=== PATIENT | female | born 1975 | race Caucasian/White ===

== ENCOUNTER 2023-11-05 06:22 | Day surgery (SDC) | payer OTHER ==
[~2023-11-05 06:22] MED LIST: TOPROL XL50 M1 PO
[2023-11-05] MEDS ORDERED: EPINEPHRINE HCL/PF 1 MG/ML AMPUL ONE (10:45)
[2023-11-05] MEDS ORDERED: GENTAMICIN SULFATE 40 MG/ML VIAL ONE (10:45)
[2023-11-05] MEDS ORDERED: POVIDONE-IODINE 118 ML BOTT TOP ONE (10:46)
[2023-11-05] MEDS ORDERED: CEFAZOLIN SODIUM 1,000 MG VIAL ONE (10:46)
[2023-11-05] MEDS ORDERED: CLINDAMYCIN PHOSPHATE 150 MG/ML (900mg) ONE (11:18)
== END 2023-11-05 20:35 | disposition home or self-care (01) ==
LOC: CIR.AMB 06:22
PROVIDERS: ATTEND Surgery
DX: C50.112 Malignant neoplasm of central portion of left female breast (principal); N62 Hypertrophy of breast; N65.1 Disproportion of reconstructed breast
CPT/HCPCS: 19301; 38525; 14301; 19318; A9541; L8699